=== PATIENT | male | born 1970 | race American Indian/Alaskan Native ===

== ENCOUNTER 2020-06-30 11:58 | Emergency (ER) | payer SELFPAY ==
[2020-06-30] MEDS ORDERED: ASPIRIN 325 MG TAB PO ONE (12:37)
[2020-06-30 13:35] LABS: Basophils # (Auto) 0.1 K/mm3 (0.0-0.1); Eosinophils # (Auto) 0.3 K/mm3 (0.0-0.4); Hematocrit 46.8 % (35.5-45.6); Hemoglobin 16.1 gm/dl (11.8-15.2); Lymphocytes % (Auto) 37.1 % (13.4-35.0); Mean Corpuscular HGB Conc 35 % (32-34); Mean Corpuscular Volume 95 fl (84-94); Monocytes # (Auto) 0.7 K/mm3 (0.0-0.8); Monocytes % (Auto) 8.1 % (0.0-7.3); Platelet Count 252 K/mm3 (140-440); Red Blood Count 4.91 M/mm3 (3.65-5.03)
--- NOTE | 2020-06-30 13:40 | XRay Report ---
CHEST 1 VIEW INDICATION: MAIN. COMPARISON: None FINDINGS: Support devices: None. Heart: Within normal limits. Lungs/Pleura: No acute air space or interstitial disease. Additional findings: None. IMPRESSION: No acute findings. Signer Name: Carroll Mayer Jr, MD Signed: 06/30/2020 1:36 PM Workstation Name: [id number]
[2020-06-30 13:50] VITALS: BP 111/78
[2020-06-30 14:13] LABS: BUN/Creatinine Ratio 17; Blood Urea Nitrogen 15 mg/dL (9-20); Calcium 9.6 mg/dL (8.4-10.2); Hemolysis Index 10
[2020-06-30] MEDS ORDERED: IPRATROPIUM/ALBUTEROL SULFATE 3 ML AMPUL.NEB IH ONE (14:18)
[2020-06-30] MEDS ORDERED: ALUM-MAG HYDROXIDE-SIMETHICONE 200-200-20MG/5ML ORAL LIQD 30 ML PO ONE (14:19)
--- NOTE | 2020-06-30 14:50 | Emergency Department Report ---
ED Shortness of Breath HPI - General Chief Complaint: Dyspnea/Respdistress Stated Complaint: SOB Time Seen by Provider: 06/30/20 14:11 Source: patient Mode of arrival: Ambulatory Limitations: No Limitations - History of Present Illness Initial Comments: 50-year-old male with no significant past medical history presents to the hospital complaining of intermittent shortness of breath and chest pain for the past 4 days. Patient states that his breath is getting sure. He is also having intermittent pain in the middle of his chest described as burning wrist with deep inspiration. He complains of cough productive of clear sputum without fever. Patient does smoke cigarettes. Patient also endorses crack cocaine use last week. He also drinks a 12 pack of beer daily with last drink yesterday. He denies hypertension, diabetes, elevated cholesterol but does not see a primary care doctor. He denies wheezing, calf tenderness, leg edema, recent tra [place], history of PE/DVT. - Related Data Allergies Allergy/AdvReac Type Severity Reaction Status Date / Time No Known Allergies Allergy Unverified 06/30/20 12:33 ED Review of Systems ROS: Stated complaint: SOB Other details as noted in HPI Comment: All other systems reviewed and negative ED Past Medical Hx - Past Medical History Previous Medical History?: No - Surgical History Past Surgical History?: No - Social History Smoking Status: Never Smoker Substance Use Type: None ED Physical Exam - General Limitations: No Limitations - Other Other exam information: General: No acute distress Head: Atraumatic Eyes: normal appearance ENT: Moist mucous membranes Neck: Normal appearance, no midline tenderness Chest: Mild wheezing right lung field, chest wall nontender CV: Regular rate and rhythm Abdomen: Soft, normal bowel sounds, nontender, nondistended, no rebound or guarding Back: Normal inspection Extremity: Normal inspection, full range of motion, no calf tenderness or leg edema Neuro: Alert O x 3, no facial asymmetry, speech clear, no gross motor sensory deficit Psych: Appropriate behavior Skin: No rash ED Course Vital Signs 06/30/20 06/30/20 06/30/20 12:35 13:46 15:16 Temperature 98.1 F 98.1 F Pulse Rate 78 74 Pulse Rate [ 76 Anterior Bilateral Throughout] Respiratory 19 15 Rate Respiratory 19 Rate [Anterior Bilateral Throughout] Blood Pressure 131/84 111/78 Blood Pressure 111/78 [Right] O2 Sat by Pulse 98 100 Oximetry ED Medical Decision Making - Lab Data Result diagrams: 06/30/20 12:51 06/30/20 12:50 Lab Results 06/30/20 06/30/20 06/30/20 Range/Units 12:50 12:51 14:24 WBC 8.2 (4.5-11.0) K/mm3 RBC 4.91 (3.65-5.03) M/mm3 Hgb 16.1 H (11.8-15.2) gm/dl Hct 46.8 H (35.5-45.6) % MCV 95 H (84-94) fl MCH 33 H (28-32) pg MCHC 35 H (32-34) % RDW 14.0 (13.2-15.2) % Plt Count 252 (140-440) K/mm3 Lymph % (Auto) 37.1 H (13.4-35.0) % Cowley % (Auto) 8.1 H (0.0-7.3) % Eos % (Auto) 4.0 (0.0-4.3) % Baso % (Auto) 1.0 (0.0-1.8) % Lymph # 3.0 (1.2-5.4) K/mm3 Cowley # 0.7 (0.0-0.8) K/mm3 Eos # 0.3 (0.0-0.4) K/mm3 Baso # 0.1 (0.0-0.1) K/mm3 Seg Neutrophils % 49.8 (40.0-70.0) % Seg Neutrophils # 4.1 (1.8-7.7) K/mm3 D-Dimer < 135.00 (0-234) ng/mlDDU Sodium 139 (137-145) mmol/L Potassium 3.9 (3.6-5.0) mmol/L Chloride 105.6 (98-107) mmol/L Carbon Dioxide 18 L (22-30) mmol/L Anion Gap 19 mmol/L BUN 15 (9-20) mg/dL Creatinine 0.9 (0.8-1.3) mg/dL Estimated GFR > 60 ml/min BUN/Creatinine Ratio 17 % Glucose 91 (75-100) mg/dL Calcium 9.6 (8.4-10.2) mg/dL Troponin T < 0.010 (0.00-0.029) ng/mL - EKG Data -: EKG Interpreted by Me EKG shows normal: sinus rhythm, ST-T waves (No ST elevation PA with T wave inversion) Rate: normal (75) - Radiology Data Radiology results: report reviewed CHEST 1 VIEW INDICATION: MAIN. COMPARISON: None FINDINGS: Support devices: None. Heart: Within normal limits. Lungs/Pleura: No acute air space or interstitial disease. Additional findings: None. IMPRESSION: No acute findings. - Medical Decision Making Patient received a DuoNeb in the ED with pre-treatment peak flow 371 and increase to 440 after a DuoNeb Patient has a normal EKG, negative troponin, negative d-dimer, and negative chest x-ray. Patient endorses smoking and crack cocaine abuse as well as alcohol abuse will increase his risk of CAD. Repeat troponin pending. 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 ED Disposition Clinical Impression: Chest pain, Smoker, Crack cocaine use, Alcohol abuse Disposition: 07 ELOPED Is pt being admited?: No Condition: Stable Time of Disposition: 16:33
== END 2020-06-30 19:50 | disposition left against medical advice (07) ==
LOC: ED 11:58
DX: R06.02 Shortness of breath (principal); Z53.21 Procedure and treatment not carried out due to patient leaving prior to being seen by health care provider
CPT/HCPCS: 36415; 71045; 80048; 84484; 85025; 85379; 93005; 94644